=== PATIENT | male | born 1960 | race Caucasian/White ===

== ENCOUNTER 2024-11-03 18:12 | Emergency (ER) | payer MEDICAID, SELFPAY ==
[2024-11-03] VITALS (8 sets, daily range): BP systolic 99–131; BP diastolic 53–78; PULSE 61–96; RESP 20–21; TEMP 36.7; O2SAT 91–98; BMI 45.6
--- NOTE | 2024-11-03 18:19 | ECG_ITS ---
[facility] Test Date: 2024-11-03 Pat Name: Sung Matthews Department: Room: Gender: Male Fringe Weaver: : 1960 Requested By: Gunner Gutierres Order Number: [id number] Reading MD: Measurements Intervals [place] Rate: 64 P: 72 [place]: 185 QRS: 64 QRSD: 111 T: 37 QT: 313 QTc: 324 Interpretive Statements SINUS RHYTHM MODERATE INTRAVENTRICULAR CONDUCTION DELAY [110+ ms QRS DURATION] NONSPECIFIC T-WAVE ABNORMALITY No previous ECG available for comparison [id number]
--- NOTE | 2024-11-03 18:19 | XRR_ITS ---
PROCEDURE INFORMATION: Exam: XR Chest Exam date and time: 11/03/2024 6:44 PM Age: 64 years old Clinical indication: Chest wall pain; Additional info: Chest pain TECHNIQUE: Imaging protocol: Radiologic exam of the chest. Views: 1 view. COMPARISON: No relevant prior studies available. FINDINGS: Lungs: Unremarkable. No consolidation. Pleural spaces: Unremarkable. No pleural effusion. No pneumothorax. Heart/Mediastinum: Unremarkable. No cardiomegaly. Bones/joints: Unremarkable. XR/XR chest 1V portable [id number] IMPRESSION: No acute findings.
--- NOTE | 2024-11-03 18:27 | W.ED.CHESTPA ---
HPI - Chest Pain General: Chief Complaint: Chest Pain Stated Complaint: chest pain Time Seen by Provider: 11/03/24 18:18 History of Present Illness: Patient presents to the ER by EMS with complaints of chest pain that radiates to the back. He states this is more of a pressure it was a 8 out of 10 when it started and now it is about a 3 out of 10. Patient says the pain is worse when he takes a big deep breath. Patient does have some mild shortness of breath. He is requiring 3 L of oxygen now and does not usually wear oxygen at home. EMS gave the patient 3 and 24 mg aspirin and 3 nitro en route. Patient did take 3 old nitro at home at approximately 11 years old they did not relieve the patient's pain. Per the patient does not have any cardiac history other than A-fib. Patient denies any nausea vomiting diaphoresis. Related Data Home Medications ?Medication ?Instructions ?Recorded ?Confirmed aspirin 325 mg tablet 325 mg PO DAILY 09/19/21 09/19/21 diclofenac sodium 1 % topical gel 4 g topical QID 09/19/21 09/19/21 (Arthritis Pain (diclofenac)) levothyroxine 150 mcg capsule 150 mcg PO DAILY 09/19/21 09/19/21 metoprolol tartrate 25 mg tablet 12.5 mg PO .EVERY OTHER DAY 09/19/21 09/19/21 multivitamin with minerals-folic tab PO 09/19/21 09/19/21 acid 0.4 mg tablet omeprazole 40 mg capsule,delayed 40 mg PO DAILY 09/19/21 09/19/21 release oxycodone 10 mg tablet 10 mg PO Q4H PRN 09/19/21 09/19/21 Allergies Allergy/AdvReac Type Severity Reaction Status Date / Time No Known Allergies Allergy Verified 09/18/21 15:57 Review of Systems General: Reports: 10 or more systems reviewed and unremarkable except in HPI and below PFSH ED PFSH: Family History Father Heart disease Cancer SKIN Mother Brain tumor Physical Exam Const: COMMON NORMALS: no acute distress, average body habitus, patient oriented x3, no limitations, healthy appearing, alert and well nourished HENMT: COMMON NORMALS: normocephalic, atraumatic, hearing grossly normal bilaterally, external ears normal, Normal external nose present and moist oral mucous membranes HEAD & SCALP: normocephalic and atraumatic NOSE: Normal external nose present EXTERNAL EAR: Yes external ears normal Neck/C-Spine: COMMON NORMALS: full ROM, no lymphadenopathy, supple, no meningeal signs, no JVD and Thyroid normal THYROID: Thyroid normal Chest: COMMONS NORMALS: normal inspection of the chest and normal palpation of entire chest wall Resp: COMMON NORMALS: normal respiratory effort, No retractions, No use of accessory muscles and clear to auscultation bilaterally AUSCULTATION: clear to auscultation bilaterally Cardio: COMMON NORMALS: no JVD, regular rate, regular rhythm, S1 normal heart sound present, S2 normal heart sound present, No gallops present (Cardio), No clicks present (Cardio), No murmurs present (Cardio) and No rub (Cardio) RATE: regular rate RHYTHM: regular rhythm HEART SOUNDS: S1 normal heart sound present and S2 normal heart sound present GI: COMMON NORMALS: Normal to inspection, nondistended, normoactive bowel sounds present, Soft to palpation, non-tender, No hepatosplenomegaly present and no masses PALPATION: Yes Soft to palpation and Yes No hepatosplenomegaly present Neuro: COMMON NORMALS: patient oriented x3 SENSORIUM/ORIENTATION: Yes alert MENINGEAL SIGNS: Yes no meningeal signs Course Vital Signs: Vital signs: Vital Signs Temperature 98.1 F 11/03/24 18:15 Pulse Rate 96 11/03/24 23:20 Respiratory Rate 21 H 11/03/24 20:25 Blood Pressure 116/77 11/03/24 23:20 Pulse Oximetry 91 11/03/24 23:20 Oxygen Delivery Me thod Room Air 11/03/24 23:20 Oxygen Flow Rate 3 11/03/24 18:57 MDM - Chest Pain Medical Decision Making Patient presented with chest pain was worked up in a standard chest pain fashion with chest x-ray which was negative, serial lab work including serial troponins baseline troponin is seven 2-hour troponin of 12.7 for delta of 5.7, EKG does not show any significant changes. Patient was titrated off the oxygen and His O2 sat 92+ percent on room air. Patient be discharged home. Medical Records I reviewed the patient's medical records. Lab Data I reviewed the patient's lab results. 11/03/24 18:20 11/03/24 19:13 Radiology Impressions Chest X-Ray 11/03/24 18:19 IMPRESSION: No acute findings. Laboratory Results WBC 13.41 10^3/uL (3.29-11.43) H 11/03/24 18:20 RBC 5.07 10^6/uL (3.85-5.65) 11/03/24 18:20 Hgb 14.50 g/dL (11.27-16.99) 11/03/24 18:20 Hct 43.6 % (37-53) 11/03/24 18:20 MCV 86.0 fl (82-101) 11/03/24 18:20 MCH 28.6 pg (27-33) 11/03/24 18:20 MCHC 33.3 g/dL (30-55) 11/03/24 18:20 RDW 13.2 % (12.1-15.1) 11/03/24 18:20 Plt Count 266 10^3/cmm (157-399) 11/03/24 18:20 MPV 9.6 fL (7.4-10.4) 11/03/24 18:20 Neut % (Auto) 73.0 % 11/03/24 18:20 Lymph % (Auto) 17.5 % 11/03/24 18:20 [place] % (Auto) 7.7 % 11/03/24 18:20 Eos % (Auto) 0.9 % 11/03/24 18:20 Baso % (Auto) 0.5 % 11/03/24 18:20 Neut # (Auto) 9.79 10^3/uL (1.8-7.7) H 11/03/24 18:20 Lymph # (Auto) 2.4 10^3/uL (0.8-4.8) 11/03/24 18:20 [place] # (Auto) 1.0 10^3/uL (0.2-0.9) H 11/03/24 18:20 Eos # (Auto) 0.1 10^3/uL (0.0-0.8) 11/03/24 18:20 Baso # (Auto) 0.1 10^3/uL (0.0-0.1) 11/03/24 18:20 Nucleated RBC % (auto) 0 % 11/03/24 18:20 Nucleated RBCs # 0.0 /100WBC 11/03/24 18:20 PT 12.70 SECONDS (12.1-14.9) 11/03/24 18:27 INR 0.89 (0.8-1.2) 11/03/24 18:27 Sodium 141 mmol/L (136-145) 11/03/24 19:13 Potassium 3.9 mmol/L (3.5-5.1) 11/03/24 19:13 Chloride 104 mmol/L (98-107) 11/03/24 19:13 Carbon Dioxide 28 mmol/L (22-29) 11/03/24 19:13 Anion Gap 12.9 (5-19) 11/03/24 19:13 BUN 11 mg/dL (8-23) 11/03/24 19:13 Creatinine 1.1 mg/dL (0.7-1.2) 11/03/24 19:13 GFR Calculation 67.6 mL/min (90-130) L 11/03/24 19:13 Glucose 113 mg/dL (65-115) 11/03/24 19:13 Calculated Osmolality 292 mOsm/kg (285-295) 11/03/24 19:13 Calcium 8.9 mg/dL (8.5-10.5) 11/03/24 19:13 Total Bilirubin 0.4 mg/dL (0.15-1.2) 11/03/24 19:13 AST 13 U/L (0-40) 11/03/24 19:13 ALT 16 U/L (0-41) 11/03/24 19:13 Alkaline Phosphatase 87 U/L (40-130) 11/03/24 19:13 Troponin T Baseline 7 ng/L (0-15) 11/03/24 18:20 Troponin T 120 Minute 12.78 ng/L (0-15) 11/03/24 20:22 Delta Troponin T 5.78 ABS# (0-10) 11/03/24 20:22 Total Protein 6.7 g/dL (6.6-8.7) 11/03/24 19:13 Albumin 4.0 g/dL (3.5-5.2) 11/03/24 19:13 Globulin 2.7 g/dL (1.3-4.6) 11/03/24 19:13 All radiology interpretation(s) finalized by discharge Discharge Plan Discharge Patient Disposition: Home Clinical Impression: Chest pain Qualifiers: Chest pain type: unspecified Qualified Code(s): R07.9 - Chest pain, unspecified Condition: Stable Prescriptions: No Action omeprazole 40 mg capsule,delayed release(DR/EC) 40 mg PO DAILY oxycodone 10 mg tablet 10 mg PO Q4H PRN metoprolol tartrate 25 mg tablet 12.5 mg PO .EVERY OTHER DAY levothyroxine 150 mcg capsule 150 mcg PO DAILY multivit with min-folic acid 0.4 mg tablet PO diclofenac sodium [Arthritis Pain (diclofenac)] 1 % gel 4 g topical QID Rx Instructions: apply to single knee, ankle, foot; for foot includes sole/toes/top of foot aspirin 325 mg tablet 325 mg PO DAILY Discharge Orders: Discharge ED (Routine); Ordered 11/03/24 Ordered By: Gunner Gutierres Referrals: Osei Leary DO [Primary Care Provider] - Ryan Lorenz [Referring] - Patient Instructions: Chest Pain (ED) Activity Restrictions/Additional Instructions: Your evaluation ER did not show any cause of your chest pain. Your chest x-ray, EKG and lab work was all benign. It may be chest wall pain or noncardiac chest pain. Please follow-up with your family practice physician within next 7 to 10 days for further evaluation treatment. If her chest pain returns or worsens please feel free to return to the ER. Print Language: Malaysian Coding Level of Care Code ED Research Laboratory Technician for Ruben Frank
[2024-11-03 18:33] LABS: Basophils # 0.1 10^3/uL (0.0-0.1); Basophils % 0.5 %; Eosinophils # 0.1 10^3/uL (0.0-0.8); Eosinophils % 0.9 %; Hematocrit 43.6 % (37-53); Lymphocytes # 2.4 10^3/uL (0.8-4.8); Lymphocytes % 17.5 %; Mean Corpuscular HGB Conc 33.3 g/dL (30-55); Mean Corpuscular Hemoglobin 28.6 pg (27-33); Mean Platelet Volume 9.6 fL (7.4-10.4); Monocytes % 7.7 %; Neutrophils # 9.79 10^3/uL (1.8-7.7); Nucleated Red Blood Cells % 0 %; Platelet Count 266 10^3/cmm (157-399); Red Blood Count 5.07 10^6/uL (3.85-5.65); Red Cell Distribution Width 13.2 % (12.1-15.1); White Blood Count 13.41 10^3/uL (3.29-11.43)
[2024-11-03 18:44] LABS: INR 0.89 (0.8-1.2)
--- NOTE | 2024-11-03 18:48 | PC.NURSE ---
Assumed care from Juliette Amaya RN at shift change.
[2024-11-03 19:21] LABS: Troponin(5th) Baseline 7 ng/L (0-15)
[2024-11-03 19:37] LABS: Alanine Aminotransferase 16 U/L (0-41); Alkaline Phosphatase 87 U/L (40-130); Anion Gap 12.9 (5-19); Aspartate Amino Transferase 13 U/L (0-40); Blood Urea Nitrogen 11 mg/dL (8-23); Calcium 8.9 mg/dL (8.5-10.5); Carbon Dioxide 28 mmol/L (22-29); Chloride 104 mmol/L (98-107); Creatinine Clr Calc Pharmacy 92.8192; Globulin 2.7 g/dL (1.3-4.6); Glomerular Filtration Rate 67.6 mL/min (90-130); Glucose 113 mg/dL (65-115); Osmolality Calculated 292 mOsm/kg (285-295); Potassium 3.9 mmol/L (3.5-5.1); Sodium 141 mmol/L (136-145); Total Bilirubin 0.4 mg/dL (0.15-1.2); Total Protein 6.7 g/dL (6.6-8.7)
[2024-11-03 21:12] LABS: Troponin 5 2HR 12.78 ng/L (0-15); Troponin 5 2HR Delta 5.78 ABS# (0-10)
== END 2024-11-03 23:38 | disposition home or self-care (01) ==
PROVIDERS: Emergency Provider Emergency Medicine; PCP Family Medicine
DX: R07.9 Chest pain, unspecified (principal); Z79.82 Long term (current) use of aspirin
CPT/HCPCS: 36415; 71045; 80053; 84484; 85025; 85610; 93005; 99285

== ENCOUNTER 2024-11-13 12:28 | Emergency (ER) | payer MEDICAID, SELFPAY ==
[2024-11-13 12:34] VITALS: BP 133/82; PULSE 119; RESP 18; TEMP 36.4; O2SAT 96; BMI 45.6
--- NOTE | 2024-11-13 12:34 | ECG_ITS ---
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 Measurements Intervals [place] Rate: 107 P: 0 [place]: 0 QRS: 31 QRSD: 112 T: 0 QT: 182 QTc: 243 Interpretive Statements ATRIAL FIBRILLATION WITH RAPID VENTRICULAR RESPONSE MODERATE INTRAVENTRICULAR CONDUCTION DELAY [110+ ms QRS DURATION] NONSPECIFIC ST & T-WAVE ABNORMALITY ABNORMAL RHYTHM ECG Compared to ECG 11/03/2024 18:17:17 Sinus rhythm no longer present T-wave abnormality still present Electronically Signed On 11-13-2024 12:40:26 CARBURETOR MECHANIC by Georges Jain M.D. [id number]
--- NOTE | 2024-11-13 12:34 | XRR_ITS ---
PROCEDURE INFORMATION: Exam: XR Chest Exam date and time: 11/13/2024 12:46 PM Age: 64 years old Clinical indication: Pain; Chest pressure; PT has HX of a-fib, PT states he has been in a-fib since . PT states he doubled up on his cardizem with no improvement. PT reports chest discomfort. ; Additional info: Cp TECHNIQUE: Imaging protocol: Radiologic exam of the chest. Views: 1 view. COMPARISON: CR (CHEST, ) 11/03/2024 6:44 PM FINDINGS: Lungs: Unremarkable. No consolidation. Pleural spaces: Unremarkable. No pleural effusion. No pneumothorax. Heart/Mediastinum: Cardiomegaly. Bones/joints: Unremarkable. XR/XR chest 1V portable [id number] IMPRESSION: No acute findings.
[2024-11-13 12:46] LABS: Basophils # 0.1 10^3/uL (0.0-0.1); Basophils % 0.9 %; Eosinophils # 0.1 10^3/uL (0.0-0.8); Eosinophils % 0.8 %; Hematocrit 43.4 % (37-53); Lymphocytes # 2.1 10^3/uL (0.8-4.8); Mean Corpuscular HGB Conc 33.4 g/dL (30-55); Mean Corpuscular Hemoglobin 28.1 pg (27-33); Mean Corpuscular Volume 84.1 fl (82-101); Mean Platelet Volume 9.2 fL (7.4-10.4); Monocytes # 0.6 10^3/uL (0.2-0.9); Monocytes % 7.5 %; Neutrophils # 5.42 10^3/uL (1.8-7.7); Neutrophils % 63.9 %; Nucleated Red Blood Cells % 0 %; Platelet Count 543 10^3/cmm (157-399); Red Blood Count 5.16 10^6/uL (3.85-5.65); Red Cell Distribution Width 12.6 % (12.1-15.1); White Blood Count 8.49 10^3/uL (3.29-11.43)
--- NOTE | 2024-11-13 12:46 | W.ED.CHESTPA ---
HPI - Chest Pain General: Chief Complaint: Chest Pain Stated Complaint: chest pain, a fib Time Seen by Provider: 11/13/24 12:34 Source: patient Mode of arrival: ambulatory Limitations: no limitations History of Present Illness: 64-year-old male who has a history of A-fib states he has been having palpitations since states feeling his heart racing he states he had some mild pain when his heart rate gets fast denies any pain currently. He denies any shortness of breath he is on Eliquis he takes metoprolol and Cardizem as well. Associated symptoms: Reports palpitations; Deny abdominal pain, dyspnea, fever(s), nausea or vomiting Related Data Home Medications ?Medication ?Instructions ?Recorded ?Confirmed aspirin 325 mg tablet 325 mg PO DAILY 09/19/21 11/13/24 multivitamin with minerals-folic 1 tab PO DAILY 09/19/21 11/13/24 acid 0.4 mg tablet omeprazole 40 mg capsule,delayed 40 mg PO DAILY 09/19/21 11/13/24 release oxycodone 10 mg tablet 10 mg PO Q4H PRN Pain 09/19/21 11/13/24 albuterol sulfate 90 mcg/actuation 1 - 2 puff inhalation .Q4-6H 11/13/24 11/13/24 aerosol inhaler (Ventolin HFA) amiodarone 200 mg tablet 200 mg PO DAILY 11/13/24 11/13/24 apixaban 5 mg tablet (Eliquis) 5 mg PO BID 11/13/24 11/13/24 diltiazem HCl 120 mg 120 mg PO DAILY 11/13/24 11/13/24 capsule,extended release 24 hr levothyroxine 150 mcg tablet 150 mcg PO QAM 11/13/24 11/13/24 metoprolol succinate 25 mg 12.5 mg PO DAILY 11/13/24 11/13/24 tablet,extended release 24 hr Allergies Allergy/AdvReac Type Severity Reaction Status Date / Time No Known Allergies Allergy Verified 09/18/21 15:57 Review of Systems Const: Denies: fever(s), chills, body aches or change in appetite ENMT: Denies: throat pain or dental pain Card: Reports: chest pain, palpitations and irregular heart rhythm Resp: Denies: dyspnea GI: Denies: abdominal pain, nausea, vomiting or diarrhea Musc: Denies: neck pain or back pain Skin/Breast: Denies: rash Neuro: Denies: headache(s) PFSH ED PFSH: Family History Father Heart disease Cancer SKIN Mother Brain tumor Course Vital Signs: Vital signs: Vital Signs Temperature 97.6 F 11/13/24 12:34 Pulse Rate 82 11/13/24 14:00 Respiratory Rate 16 11/13/24 14:00 Blood Pressure 103/79 11/13/24 14:00 Pulse Oximetry 93 11/13/24 14:00 Oxygen Delivery Me thod Room Air 11/13/24 14:00 MDM - Chest Pain Medical Decision Making Patient presents here with A-fib with RVR his heart rates now controlled after IV Cardizem blood works normal is having no chest pain he is stable for discharge he is 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 Lab Data I reviewed the patient's lab results. 11/13/24 12:41 11/13/24 12:41 Radiology Impressions Chest X-Ray 11/13/24 12:34 IMPRESSION: No acute findings. Laboratory Results WBC 8.49 10^3/uL (3.29-11.43) 11/13/24 12:41 RBC 5.16 10^6/uL (3.85-5.65) 11/13/24 12:41 Hgb 14.50 g/dL (11.27-16.99) 11/13/24 12:41 Hct 43.4 % (37-53) 11/13/24 12:41 MCV 84.1 fl (82-101) 11/13/24 12:41 MCH 28.1 pg (27-33) 11/13/24 12:41 MCHC 33.4 g/dL (30-55) 11/13/24 12:41 RDW 12.6 % (12.1-15.1) 11/13/24 12:41 Plt Count 543 10^3/cmm (157-399) H 11/13/24 12:41 MPV 9.2 fL (7.4-10.4) 11/13/24 12:41 Neut % (Auto) 63.9 % 11/13/24 12:41 Lymph % (Auto) 25.0 % 11/13/24 12:41 [place] % (Auto) 7.5 % 11/13/24 12:41 Eos % (Auto) 0.8 % 11/13/24 12:41 Baso % (Auto) 0.9 % 11/13/24 12:41 Neut # (Auto) 5.42 10^3/uL (1.8-7.7) 11/13/24 12:41 Lymph # (Auto) 2.1 10^3/uL (0.8-4.8) 11/13/24 12:41 [place] # (Auto) 0.6 10^3/uL (0.2-0.9) 11/13/24 12:41 Eos # (Auto) 0.1 10^3/uL (0.0-0.8) 11/13/24 12:41 Baso # (Auto) 0.1 10^3/uL (0.0-0.1) 11/13/24 12:41 Nucleated RBC % (auto) 0 % 11/13/24 12:41 Nucleated RBCs # 0.0 /100WBC 11/13/24 12:41 PT 14.80 SECONDS (12.1-14.9) 11/13/24 12:41 INR 1.09 (0.8-1.2) 11/13/24 12:41 Sodium 136 mmol/L (136-145) 11/13/24 12:41 Potassium 4.5 mmol/L (3.5-5.1) 11/13/24 12:41 Chloride 100 mmol/L (98-107) 11/13/24 12:41 Carbon Dioxide 24 mmol/L (22-29) 11/13/24 12:41 Anion Gap 16.5 (5-19) 11/13/24 12:41 BUN 17 mg/dL (8-23) 11/13/24 12:41 Creatinine 1.1 mg/dL (0.7-1.2) 11/13/24 12:41 GFR Calculation 67.6 mL/min (90-130) L 11/13/24 12:41 Glucose 128 mg/dL (65-115) H 11/13/24 12:41 Calculated Osmolality 285 mOsm/kg (285-295) 11/13/24 12:41 Calcium 9.7 mg/dL (8.5-10.5) 11/13/24 12:41 Total Bilirubin 0.4 mg/dL (0.15-1.2) 11/13/24 12:41 AST 15 U/L (0-40) 11/13/24 12:41 ALT 17 U/L (0-41) 11/13/24 12:41 Alkaline Phosphatase 85 U/L (40-130) 11/13/24 12:41 Troponin T Baseline 10 ng/L (0-15) 11/13/24 12:41 Total Protein 7.5 g/dL (6.6-8.7) 11/13/24 12:41 Albumin 4.0 g/dL (3.5-5.2) 11/13/24 12:41 Globulin 3.5 g/dL (1.3-4.6) 11/13/24 12:41 Lipase 45 U/L (13-60) 11/13/24 12:41 All radiology interpretation(s) finalized by discharge EKG Data EKG 1: I personally reviewed and interpreted this EKG as follows: EKG interpretation date: 11/13/24 EKG interpretation time: 12:31 Interpretation: afib rvr hr [address] elevation EKG 2: I personally reviewed and interpreted this EKG as follows: EKG interpretation date: 11/13/24 EKG interpretation time: 13:33 Interpretation: afib hr [address] or t wave abnormalities qrs 108 qtc 403 Discharge Plan Discharge Patient Disposition: Home Clinical Impression: Atrial fibrillation with RVR Condition: Stable Prescriptions: No Action omeprazole 40 mg capsule,delayed release(DR/EC) 40 mg PO DAILY oxycodone 10 mg tablet 10 mg PO Q4H PRN (Reason: Pain) multivit with min-folic acid 0.4 mg tablet 1 tab PO DAILY aspirin 325 mg tablet 325 mg PO DAILY amiodarone 200 mg tablet 200 mg PO DAILY levothyroxine 150 mcg tablet 150 mcg PO QAM diltiazem HCl 120 mg capsule,extended release 24hr 120 mg PO DAILY metoprolol succinate 25 mg tablet extended release 24 hr 12.5 mg PO DAILY albuterol sulfate [Ventolin HFA] 90 mcg/actuation HFA aerosol inhaler 1 - 2 puff INHALATION .Q4-6H Eliquis 5 mg tablet 5 mg PO BID Discharge Orders: Discharge ED (Routine); Ordered 11/13/24 Ordered By: Isabel Witt Referrals: Dalia Conrad DO [Primary Care Provider] - Discharge Diet: Advance as tolerated Discharge Activity: Resume usual activity Patient Instructions: A-fib (Atrial Fibrillation) (ED) Print Language: Persian Coding Level of Care Code ED Asbestos Siding Mechanic for Ruben Frank
[2024-11-13 12:58] LABS: INR 1.09 (0.8-1.2)
[2024-11-13 13:05] LABS: Troponin(5th) Baseline 10 ng/L (0-15)
[2024-11-13 13:06] LABS: Alanine Aminotransferase 17 U/L (0-41); Alkaline Phosphatase 85 U/L (40-130); Anion Gap 16.5 (5-19); Aspartate Amino Transferase 15 U/L (0-40); Blood Urea Nitrogen 17 mg/dL (8-23); Calcium 9.7 mg/dL (8.5-10.5); Carbon Dioxide 24 mmol/L (22-29); Chloride 100 mmol/L (98-107); Creatinine Clr Calc Pharmacy 92.8192; Globulin 3.5 g/dL (1.3-4.6); Glomerular Filtration Rate 67.6 mL/min (90-130); Glucose 128 mg/dL (65-115); Lipase 45 U/L (13-60); Osmolality Calculated 285 mOsm/kg (285-295); Potassium 4.5 mmol/L (3.5-5.1); Sodium 136 mmol/L (136-145); Total Bilirubin 0.4 mg/dL (0.15-1.2); Total Protein 7.5 g/dL (6.6-8.7)
[2024-11-13 13:11] VITALS: BP 133/82; PULSE 95; RESP 14; O2SAT 90
[2024-11-13] MEDS: aspirin 81 mg Chew Tablet 324 MG PO (13:15)
[2024-11-13] MEDS: dilTIAZem 5 mg/mL SDV 5 mL 10 MG IVP (13:15)
[2024-11-13 14:00] VITALS: BP 103/79; PULSE 82; RESP 16; O2SAT 93
--- NOTE | 2024-11-13 14:34 | ECG_ITS ---
[facility]: [facility]24[facility]13 Pat Name: Sung Matthews Department: Room: Gender: Male Title Assistant: : 1960 Requested By: Isabel Witt Order Number: [id number] Nura MD: Georges Jain M.D. Measurements Intervals [place] Rate: 80 P: 0 [place]: 0 QRS: 20 QRSD: 108 T: 60 QT: 367 QTc: 425 Interpretive Statements ATRIAL FIBRILLATION ST DEVIATION AND MODERATE T-WAVE ABNORMALITY, CONSIDER ANTERIOR ISCHEMIA Compared to ECG 11/13/2024 12:31:45 Possible ischemia now present Intraventricular conduction delay no longer present T-wave abnormality still present Electronically Signed On 11-13-2024 17:22:34 CHIEF PROCUREMENT OFFICER by Georges Jain M.D. [email or web address]
[2024-11-13 14:41] VITALS: BP 108/66; PULSE 76; RESP 16; O2SAT 95
== END 2024-11-13 14:18 | disposition home or self-care (01) ==
PROVIDERS: Emergency Provider Emergency Medicine; PCP Family Medicine
DX: I48.20 Chronic atrial fibrillation, unspecified (principal); Z79.82 Long term (current) use of aspirin; Z79.01 Long term (current) use of anticoagulants
CPT/HCPCS: 71045; 80053; 83690; 84484; 85025; 85610; 93005; 96374; 99285; J3490